=== PATIENT | female | born 1950 | race Caucasian/White ===

== ENCOUNTER 2020-09-29 17:26 | Inpatient (IN) | payer MEDICARE, MEDICAID ==
[~2020-09-29] VITALS: Ht 162.6 cm; Wt 64.9 kg
[2020-09-29] MEDS ORDERED: VANCOMYCIN 1 G PREMIX 200 ML IV ONE (18:30)
[2020-09-29] MEDS ORDERED: PIPERACILLIN/TAZ 3.375G PREMIX 50 ML IV ONE (18:30)
[2020-09-29 18:48] LABS: CHLORIDE 105 mEq/L (98-107)
[2020-09-29 18:52] LABS: ETHANOL BLOOD < 10 mg/dL
[2020-09-29 19:09] LABS: CLARITY URINE TURBID (CLEAR); COLOR URINE DARK YELLOW (YELLOW); KETONES URINE TRACE (NEGATIVE); LEUKOCYTE ESTERASE URINE 2+ (NEGATIVE); NITRITE URINE NEGATIVE (NEGATIVE); OCCULT BLOOD URINE 2+ (NEGATIVE); PROTEIN URINE 3+ (NEGATIVE); SPECIFIC GRAVITY URINE 1.031 (1.005-1.030)
[2020-09-29 19:17] LABS: BASOPHILS % 0.2 % (0.0-2.0); EOSINOPHILS % 1.3 % (0.0-5.0); HEMATOCRIT. 31.5 % (36.0-48.0); HEMOGLOBIN. 10.1 g/dL (12.0-16.0); LYMPHOCYTES % 8.1 % (20.0-50.0); MEAN CORPUSCULAR HEMOGLOBIN 25.6 pg (28.0-32.0); MEAN CORPUSCULAR VOLUME 79.6 fL (81.0-99.0); NEUTROPHILS % 86.4 % (40.0-76.0); PLATELET 380 x1000/uL (130-400); RED BLOOD CELL COUNT 3.95 mill/uL (4.2-5.4); RED CELL DISTRIBUTION WIDTH 17.5 % (11.6-14.6)
[2020-09-29 19:18] LABS: *AMPHETAMINES SCREEN URINE NEGATIVE (NEGATIVE); *BARBITURATES SCREEN URINE NEGATIVE (NEGATIVE); *COCAINE SCREEN URINE NEGATIVE (NEGATIVE)
[2020-09-29 19:19] LABS: *BENZODIAZEPINES SCREEN URINE NEGATIVE (NEGATIVE); CANNABINOID URINE SCREEN NEGATIVE (NEGATIVE); METHADONE URINE SCREEN NEGATIVE (NEGATIVE); OPIATES URINE SCREEN PRESUMTIVE POSITIVE (NEGATIVE); PHENCYCLIDINE URINE SCREEN NEGATIVE (NEGATIVE)
[2020-09-29] MEDS ORDERED: CLONIDINE 0.1MG TABLET PO PRN (19:45)
[2020-09-29] MEDS ORDERED: IPRATROPIUM/ALBUTEROL 0.5-3(2.5)MG/3ML NEB HHN PRN (19:45)
[2020-09-29] MEDS ORDERED: DIPHENHYDRAMINE 50MG/ML VIAL IV PRN (19:45)
[2020-09-29] MEDS: SODIUM CHLORIDE 0.9% 1,000 ML IV SCH (20:47)
[2020-09-30] MEDS ORDERED: IOHEXOL-300 100 ML BOTTLE ONE (01:20)
[2020-09-30] MEDS ORDERED: VANCOMYCIN 750 MG PREMIX 150 ML IV SCH (05:00)
[2020-09-30] MEDS: PIPERACILLIN/TAZOBACTAM 3.375 G in DEXTROSE 5% WATER 50 ML IV SCH ×3 (05:32→23:18)
[2020-09-30 10:41] LABS: BASOPHILS % 0.5 % (0.0-2.0); EOSINOPHILS % 2.3 % (0.0-5.0); HEMATOCRIT. 29.5 % (36.0-48.0); HEMOGLOBIN. 9.6 g/dL (12.0-16.0); LYMPHOCYTES % 17.7 % (20.0-50.0); MEAN CORPUSCULAR HEMOGLOBIN 26.1 pg (28.0-32.0); MEAN CORPUSCULAR VOLUME 79.9 fL (81.0-99.0); MEAN PLATELET VOLUME 7.7 fl (7.4-10.4); MONOCYTES % 6.3 % (2.0-8.0); NEUTROPHILS % 73.2 % (40.0-76.0); PLATELET 331 x1000/uL (130-400); RED BLOOD CELL COUNT 3.69 mill/uL (4.2-5.4); RED CELL DISTRIBUTION WIDTH 17.7 % (11.6-14.6)
[2020-09-30 10:44] LABS: CHLORIDE 106 mEq/L (98-107)
[2020-09-30 10:51] LABS: LDL CHOLESTEROL 87 mg/dL (5-100)
[2020-09-30 10:52] LABS: HDL CHOLESTEROL 36 mg/dL (40-59)
[2020-09-30] MEDS ORDERED: ASPI-1497 PO (17:22)
[2020-09-30] MEDS ORDERED: FERR325T6 PO (17:22)
[2020-09-30] MEDS ORDERED: LOSA50TA41 PO (17:22)
[2020-09-30] MEDS ORDERED: VALP250S5 PO (17:22)
[2020-09-30] MEDS ORDERED: ASCO100T12 PO (17:22)
[2020-09-30] MEDS ORDERED: CALC-586 PO (17:22)
[2020-09-30] MEDS: SODIUM CHLORIDE 0.9% 1,000 ML IV SCH (17:46)
[2020-09-30] MEDS: INSULIN LISPRO 100 UNITS/ML SUBCUT SCH ×2 (18:10→21:00)
[2020-09-30] MEDS: BLOOD SUGAR DIAGNOSTIC STRIP TEST SCH ×2 (18:12→21:00)
[2020-09-30] MEDS ORDERED: DEXTROSE 50% WATER 50ML SYRINGE IV PRN (18:15)
[2020-09-30 19:21] LABS: TOTAL IRON BINDING CAPACITY 271 ug/dL (250-450)
[2020-09-30 20:00] VITALS: BP 113/68
[2020-09-30] MEDS ORDERED: VANCOMYCIN 1 G PREMIX 200 ML IV SCH (21:00)
[2020-10-01] VITALS: BP 117/86
[2020-10-01] MEDS ORDERED: DEXT 5% IV SCH ×2 (03:00→15:00)
[2020-10-01] MEDS ORDERED: WATER IV SCH ×2 (03:00→15:00)
[2020-10-01] MEDS ORDERED: POLYMYXIN B SULFATE IV SCH ×2 (03:00→15:00)
[2020-10-01] MEDS: ACETAMINOPHEN 325MG TABLET PO PRN ×2 (03:41→09:10)
[2020-10-01 04:00] VITALS: BP 136/76
[2020-10-01] MEDS: PIPERACILLIN/TAZOBACTAM 3.375 G in DEXTROSE 5% WATER 50 ML IV SCH ×2 (05:50→13:26)
[2020-10-01] MEDS: INSULIN LISPRO 100 UNITS/ML SUBCUT SCH ×4 (07:50→21:00)
[2020-10-01] MEDS: BLOOD SUGAR DIAGNOSTIC STRIP TEST SCH ×4 (07:59→21:42)
[2020-10-01 08:13] VITALS: BP 113/49
[2020-10-01 10:14] LABS: CHLORIDE 108 mEq/L (98-107)
[2020-10-01] MEDS: SODIUM CHLORIDE 0.9% 1,000 ML IV SCH (11:47)
[2020-10-01 12:00] VITALS: BP 109/53
[2020-10-01 16:40] VITALS: BP 137/65
[2020-10-01] MEDS: MEROPENEM 1,000 MG in SODIUM CHLORIDE 0.9% 100 ML IV SCH (17:26)
[2020-10-01 20:00] VITALS: BP 120/42
[2020-10-02] VITALS: BP 137/40
[2020-10-02] MEDS: ACETAMINOPHEN 325MG TABLET PO PRN ×2 (00:50→16:41)
[2020-10-02] MEDS: MEROPENEM 1,000 MG in SODIUM CHLORIDE 0.9% 100 ML IV SCH ×3 (00:50→17:32)
[2020-10-02] MEDS: POLYMYXIN B SULFATE IV SCH ×2 (03:56→15:54)
[2020-10-02] MEDS: WATER IV SCH ×2 (03:56→15:54)
[2020-10-02] MEDS: DEXT 5% IV SCH ×2 (03:56→15:54)
[2020-10-02 04:00] VITALS: BP 94/56
[2020-10-02] MEDS: BLOOD SUGAR DIAGNOSTIC STRIP TEST SCH ×4 (06:44→21:09)
[2020-10-02 07:59] LABS: BASOPHILS % 0.3 % (0.0-2.0); EOSINOPHILS % 10.2 % (0.0-5.0); HEMATOCRIT. 28.7 % (36.0-48.0); HEMOGLOBIN. 9.3 g/dL (12.0-16.0); LYMPHOCYTES % 25.1 % (20.0-50.0); MEAN CORPUSCULAR HEMOGLOBIN 26.4 pg (28.0-32.0); MEAN CORPUSCULAR VOLUME 81.2 fL (81.0-99.0); MEAN PLATELET VOLUME 8.1 fl (7.4-10.4); MONOCYTES % 6.5 % (2.0-8.0); NEUTROPHILS % 57.9 % (40.0-76.0); PLATELET 250 x1000/uL (130-400); RED BLOOD CELL COUNT 3.53 mill/uL (4.2-5.4); RED CELL DISTRIBUTION WIDTH 17.2 % (11.6-14.6)
[2020-10-02 08:07] LABS: CHLORIDE 106 mEq/L (98-107)
[2020-10-02 08:11] VITALS: BP 126/48
[2020-10-02] MEDS: IPRATROPIUM/ALBUTEROL 0.5-3(2.5)MG/3ML NEB HHN SCH ×3 (09:24→21:12)
[2020-10-02] MEDS: INSULIN LISPRO 100 UNITS/ML SUBCUT SCH ×4 (09:54→21:00)
[2020-10-02] MEDS: SODIUM CHLORIDE 0.9% 1,000 ML IV SCH (09:56)
[2020-10-02 12:00] VITALS: BP 125/51
[2020-10-02 16:00] VITALS: BP 122/40
[2020-10-02 20:00] VITALS: BP 119/40
[2020-10-02] MEDS: HYDROCODONE/ACETAMINOPHEN 5/325MG TABLET PO PRN (21:10)
[2020-10-03] VITALS: BP 106/52
[2020-10-03] MEDS: MEROPENEM 1,000 MG in SODIUM CHLORIDE 0.9% 100 ML IV SCH ×3 (01:26→17:52)
[2020-10-03] MEDS: IPRATROPIUM/ALBUTEROL 0.5-3(2.5)MG/3ML NEB HHN SCH ×4 (01:58→21:34)
[2020-10-03 04:00] VITALS: BP 110/50
[2020-10-03] MEDS: WATER IV SCH ×2 (04:06→14:23)
[2020-10-03] MEDS: DEXT 5% IV SCH ×2 (04:06→14:23)
[2020-10-03] MEDS: POLYMYXIN B SULFATE IV SCH ×2 (04:06→14:23)
[2020-10-03] MEDS: SODIUM CHLORIDE 0.9% 1,000 ML IV SCH (04:07)
[2020-10-03] MEDS: BLOOD SUGAR DIAGNOSTIC STRIP TEST SCH ×4 (06:22→21:10)
[2020-10-03] MEDS: INSULIN LISPRO 100 UNITS/ML SUBCUT SCH ×4 (07:20→21:00)
[2020-10-03 08:00] VITALS: BP 153/48
[2020-10-03] MEDS: HYDROCODONE/ACETAMINOPHEN 5/325MG TABLET PO PRN ×2 (10:17→21:10)
[2020-10-03] MEDS ORDERED: SODIUM CHLORIDE 0.9% 500 ML IV SCH (11:00)
[2020-10-03 12:00] VITALS: BP 110/40
[2020-10-03 12:28] LABS: BASOPHILS % 0.4 % (0.0-2.0); EOSINOPHILS % 6.6 % (0.0-5.0); HEMATOCRIT. 27.7 % (36.0-48.0); HEMOGLOBIN. 9.3 g/dL (12.0-16.0); LYMPHOCYTES % 17.4 % (20.0-50.0); MEAN CORPUSCULAR HEMOGLOBIN 26.9 pg (28.0-32.0); MEAN CORPUSCULAR VOLUME 80.3 fL (81.0-99.0); MEAN PLATELET VOLUME 8.2 fl (7.4-10.4); MONOCYTES % 6.1 % (2.0-8.0); NEUTROPHILS % 69.5 % (40.0-76.0); PLATELET 258 x1000/uL (130-400); RED BLOOD CELL COUNT 3.45 mill/uL (4.2-5.4)
[2020-10-03 12:35] LABS: CHLORIDE 105 mEq/L (98-107)
[2020-10-03] MEDS ORDERED: IOHEXOL-350 100 ML BOTTLE ONE (14:34)
[2020-10-03 16:00] VITALS: BP 120/57
[2020-10-03] MEDS: ONDANSETRON HCL 4MG/2ML INJ IV PRN (21:10)
[2020-10-04] MEDS: MEROPENEM 1,000 MG in SODIUM CHLORIDE 0.9% 100 ML IV SCH ×3 (00:48→16:38)
[2020-10-04] MEDS: SODIUM CHLORIDE 0.9% 1,000 ML IV SCH ×2 (00:48→22:09)
[2020-10-04] MEDS: IPRATROPIUM/ALBUTEROL 0.5-3(2.5)MG/3ML NEB HHN SCH ×3 (00:59→20:54)
[2020-10-04 04:00] VITALS: BP 132/50
[2020-10-04] MEDS: POLYMYXIN B SULFATE IV SCH ×2 (05:39→16:38)
[2020-10-04] MEDS: WATER IV SCH ×2 (05:39→16:38)
[2020-10-04] MEDS: DEXT 5% IV SCH ×2 (05:39→16:38)
[2020-10-04] MEDS: BLOOD SUGAR DIAGNOSTIC STRIP TEST SCH ×4 (06:38→21:00)
[2020-10-04 07:31] LABS: BASOPHILS % 0.7 % (0.0-2.0); EOSINOPHILS % 9.9 % (0.0-5.0); HEMATOCRIT. 30.1 % (36.0-48.0); HEMOGLOBIN. 10.3 g/dL (12.0-16.0); LYMPHOCYTES % 25.7 % (20.0-50.0); MEAN CORPUSCULAR HEMOGLOBIN 27.2 pg (28.0-32.0); MEAN CORPUSCULAR VOLUME 79.4 fL (81.0-99.0); MEAN PLATELET VOLUME 8.1 fl (7.4-10.4); MONOCYTES % 6.5 % (2.0-8.0); NEUTROPHILS % 57.2 % (40.0-76.0); PLATELET 266 x1000/uL (130-400); RED BLOOD CELL COUNT 3.79 mill/uL (4.2-5.4); RED CELL DISTRIBUTION WIDTH 17.1 % (11.6-14.6)
[2020-10-04 07:45] LABS: CHLORIDE 104 mEq/L (98-107)
[2020-10-04] MEDS: INSULIN LISPRO 100 UNITS/ML SUBCUT SCH ×4 (07:50→21:00)
[2020-10-04 08:00] VITALS: BP 142/47
[2020-10-04] MEDS ORDERED: SODIUM CHLORIDE 0.9% 500 ML IV SCH (11:00)
[2020-10-04 12:00] VITALS: BP 114/48
[2020-10-04 16:00] VITALS: BP 97/44
[2020-10-04] MEDS: HYDROCODONE/ACETAMINOPHEN 5/325MG TABLET PO PRN (16:36)
[2020-10-04 20:00] VITALS: BP 167/63
[2020-10-05] VITALS: BP 158/67
[2020-10-05] MEDS: MEROPENEM 1,000 MG in SODIUM CHLORIDE 0.9% 100 ML IV SCH ×3 (00:35→17:40)
[2020-10-05] MEDS: IPRATROPIUM/ALBUTEROL 0.5-3(2.5)MG/3ML NEB HHN SCH ×4 (01:09→21:07)
[2020-10-05 04:00] VITALS: BP 129/52
[2020-10-05] MEDS: DEXT 5% IV SCH ×2 (04:37→15:49)
[2020-10-05] MEDS: WATER IV SCH ×2 (04:37→15:49)
[2020-10-05] MEDS: POLYMYXIN B SULFATE IV SCH ×2 (04:37→15:49)
[2020-10-05] MEDS: BLOOD SUGAR DIAGNOSTIC STRIP TEST SCH ×4 (06:06→21:05)
[2020-10-05] MEDS: INSULIN LISPRO 100 UNITS/ML SUBCUT SCH ×4 (06:06→21:00)
[2020-10-05 07:13] LABS: CHLORIDE 102 mEq/L (98-107)
[2020-10-05 07:33] LABS: BASOPHILS % 0.7 % (0.0-2.0); EOSINOPHILS % 9.3 % (0.0-5.0); HEMATOCRIT. 28.9 % (36.0-48.0); HEMOGLOBIN. 9.9 g/dL (12.0-16.0); MEAN CORPUSCULAR HEMOGLOBIN 27.1 pg (28.0-32.0); MEAN CORPUSCULAR VOLUME 79.6 fL (81.0-99.0); MONOCYTES % 8.2 % (2.0-8.0); NEUTROPHILS % 54.8 % (40.0-76.0); PLATELET 264 x1000/uL (130-400); RED BLOOD CELL COUNT 3.64 mill/uL (4.2-5.4); RED CELL DISTRIBUTION WIDTH 17.3 % (11.6-14.6)
[2020-10-05 08:13] VITALS: BP 116/52
[2020-10-05 12:05] VITALS: BP 126/49
[2020-10-05 15:46] VITALS: BP 108/55
[2020-10-05] MEDS: SODIUM CHLORIDE 0.9% 1,000 ML IV SCH (15:49)
[2020-10-05] MEDS: HYDROCODONE/ACETAMINOPHEN 5/325MG TABLET PO PRN (16:00)
[2020-10-05 20:00] VITALS: BP 112/73
[2020-10-06] VITALS: BP 120/61
[2020-10-06] MEDS: MEROPENEM 1,000 MG in SODIUM CHLORIDE 0.9% 100 ML IV SCH ×3 (00:19→17:43)
[2020-10-06] MEDS: SODIUM CHLORIDE 0.9% 1,000 ML IV SCH (00:22)
[2020-10-06] MEDS: IPRATROPIUM/ALBUTEROL 0.5-3(2.5)MG/3ML NEB HHN SCH ×4 (02:21→21:36)
[2020-10-06] MEDS: DEXT 5% IV SCH ×2 (02:50→14:25)
[2020-10-06] MEDS: WATER IV SCH ×2 (02:50→14:25)
[2020-10-06] MEDS: POLYMYXIN B SULFATE IV SCH ×2 (02:50→14:25)
[2020-10-06] MEDS: MORPHINE SULFATE 2 MG/ML CPJ (NOT FOR IM USE) IV PRN ×2 (03:08→17:44)
[2020-10-06 05:56] VITALS: BP 122/64
[2020-10-06 06:46] LABS: BASOPHILS % 0.3 % (0.0-2.0); EOSINOPHILS % 6.3 % (0.0-5.0); HEMATOCRIT. 28.7 % (36.0-48.0); HEMOGLOBIN. 9.7 g/dL (12.0-16.0); LYMPHOCYTES % 24.1 % (20.0-50.0); MEAN CORPUSCULAR HEMOGLOBIN 26.9 pg (28.0-32.0); MEAN CORPUSCULAR VOLUME 79.6 fL (81.0-99.0); MEAN PLATELET VOLUME 8.2 fl (7.4-10.4); MONOCYTES % 7.3 % (2.0-8.0); PLATELET 258 x1000/uL (130-400); RED CELL DISTRIBUTION WIDTH 17.5 % (11.6-14.6)
[2020-10-06 06:54] LABS: CHLORIDE 101 mEq/L (98-107)
[2020-10-06] MEDS: BLOOD SUGAR DIAGNOSTIC STRIP TEST SCH ×4 (07:40→20:31)
[2020-10-06] MEDS: INSULIN LISPRO 100 UNITS/ML SUBCUT SCH ×4 (07:41→20:41)
[2020-10-06 09:15] VITALS: BP 116/53
[2020-10-06 12:12] VITALS: BP 97/78
[2020-10-06 13:26] LABS: BG BASE EXCESS 8.3 mmol/L (-2.0-2.0); BG CARBOXYHEMOGLOBIN 0.3 % (0.5-1.5); BG DEOXYHEMOGLOBIN 7.3 % (0.0-5.0); BG FRACTION INSPIRED OXYGEN 21; BG HCO3 ACT 33.3 mmol/L (22.0-26.0); BG METHEMOGLOBIN 0.3 % (0.0-1.5); BG OXYGEN SATURATION 92.7 % (92.0-98.5); BG OXYHEMOGLOBIN 92.1 % (94.0-97.0); BG PCO2 48.7 mmHg (35.0-45.0); BG PH 7.453 (7.350-7.450); BG PO2 68.7 mmHg (75.0-100.0); BG SAMPLE SITE LEFT RADIAL; BG TOTAL HEMOGLOBIN 10.6 g/dL (12.0-18.0); BG VENT MODE ROOM AIR
[2020-10-06 15:41] VITALS: BP 87/63
[2020-10-06] MEDS: LINEZOLID 600 MG PREMIX 300 ML IV SCH (20:31)
[2020-10-06 20:38] VITALS: BP 103/54
[2020-10-07 00:24] VITALS: BP 109/46
[2020-10-07] MEDS: MORPHINE SULFATE 2 MG/ML CPJ (NOT FOR IM USE) IV PRN (01:11)
[2020-10-07] MEDS: IPRATROPIUM/ALBUTEROL 0.5-3(2.5)MG/3ML NEB HHN SCH ×4 (01:54→22:02)
[2020-10-07] MEDS: MEROPENEM 1,000 MG in SODIUM CHLORIDE 0.9% 100 ML IV SCH ×3 (03:47→17:43)
[2020-10-07 04:00] VITALS: BP 128/58
[2020-10-07] MEDS: POLYMYXIN B SULFATE IV SCH ×2 (04:51→14:25)
[2020-10-07] MEDS: WATER IV SCH ×2 (04:51→14:25)
[2020-10-07] MEDS: DEXT 5% IV SCH ×2 (04:51→14:25)
[2020-10-07 06:12] LABS: BASOPHILS % 0.4 % (0.0-2.0); LYMPHOCYTES % 19.8 % (20.0-50.0); MEAN CORPUSCULAR HEMOGLOBIN 26.4 pg (28.0-32.0); MEAN CORPUSCULAR VOLUME 79.4 fL (81.0-99.0); MEAN PLATELET VOLUME 8.3 fl (7.4-10.4); MONOCYTES % 6.2 % (2.0-8.0); NEUTROPHILS % 66.6 % (40.0-76.0); PLATELET 217 x1000/uL (130-400); RED CELL DISTRIBUTION WIDTH 17.5 % (11.6-14.6)
[2020-10-07 06:21] LABS: CHLORIDE 104 mEq/L (98-107)
[2020-10-07] MEDS: BLOOD SUGAR DIAGNOSTIC STRIP TEST SCH ×4 (06:36→21:00)
[2020-10-07 08:00] VITALS: BP 116/52
[2020-10-07] MEDS: SODIUM CHLORIDE 0.9% 1,000 ML IV SCH (08:00)
[2020-10-07] MEDS: INSULIN LISPRO 100 UNITS/ML SUBCUT SCH ×4 (08:09→21:00)
[2020-10-07] MEDS: LINEZOLID 600 MG PREMIX 300 ML IV SCH ×2 (08:09→19:53)
[2020-10-07 12:00] VITALS: BP 107/58
[2020-10-07 16:00] VITALS: BP 114/56
[2020-10-07 20:32] VITALS: BP 108/40
[2020-10-08] MEDS: MEROPENEM 1,000 MG in SODIUM CHLORIDE 0.9% 100 ML IV SCH ×3 (00:12→17:24)
[2020-10-08] MEDS: SODIUM CHLORIDE 0.9% 1,000 ML IV SCH (00:12)
[2020-10-08 00:24] VITALS: BP 108/43
[2020-10-08] MEDS: IPRATROPIUM/ALBUTEROL 0.5-3(2.5)MG/3ML NEB HHN SCH ×4 (03:06→20:55)
[2020-10-08] MEDS ORDERED: MORPHINE SULFATE 2 MG/ML CPJ (NOT FOR IM USE) IV PRN (03:30)
[2020-10-08] MEDS: POLYMYXIN B SULFATE IV SCH ×2 (03:33→16:12)
[2020-10-08] MEDS: DEXT 5% IV SCH ×2 (03:33→16:12)
[2020-10-08] MEDS: WATER IV SCH ×2 (03:33→16:12)
[2020-10-08 04:00] VITALS: BP 105/72
[2020-10-08] MEDS: BLOOD SUGAR DIAGNOSTIC STRIP TEST SCH ×4 (06:56→21:00)
[2020-10-08 07:10] LABS: BASOPHILS % 0.3 % (0.0-2.0); EOSINOPHILS % 7.9 % (0.0-5.0); HEMOGLOBIN. 10.1 g/dL (12.0-16.0); LYMPHOCYTES % 18.9 % (20.0-50.0); MEAN CORPUSCULAR HEMOGLOBIN 25.9 pg (28.0-32.0); MEAN CORPUSCULAR VOLUME 79.5 fL (81.0-99.0); MEAN PLATELET VOLUME 7.9 fl (7.4-10.4); MONOCYTES % 5.9 % (2.0-8.0); PLATELET 265 x1000/uL (130-400); RED CELL DISTRIBUTION WIDTH 17.4 % (11.6-14.6)
[2020-10-08 07:39] LABS: CHLORIDE 102 mEq/L (98-107)
[2020-10-08] MEDS: INSULIN LISPRO 100 UNITS/ML SUBCUT SCH ×4 (07:50→21:00)
[2020-10-08 08:00] VITALS: BP 103/37
[2020-10-08] MEDS: LINEZOLID 600 MG PREMIX 300 ML IV SCH ×2 (08:34→20:00)
[2020-10-08] MEDS: SODIUM HYPOCHLORITE 0.125% 473ML SOLUTION TOP SCH (09:00)
[2020-10-08 12:00] VITALS: BP 119/54
[2020-10-08 16:00] VITALS: BP 108/56
[2020-10-08 20:00] VITALS: BP 138/41
[2020-10-09] VITALS (11 sets, daily range): BP systolic 107–149; BP diastolic 49–78
[2020-10-09] MEDS: IPRATROPIUM/ALBUTEROL 0.5-3(2.5)MG/3ML NEB HHN SCH ×3 (01:35→20:30)
[2020-10-09] MEDS: WATER IV SCH ×2 (03:44→15:52)
[2020-10-09] MEDS: POLYMYXIN B SULFATE IV SCH ×2 (03:44→15:52)
[2020-10-09] MEDS: MEROPENEM 1,000 MG in SODIUM CHLORIDE 0.9% 100 ML IV SCH ×3 (03:44→17:55)
[2020-10-09] MEDS: DEXT 5% IV SCH ×2 (03:44→15:52)
[2020-10-09] MEDS: SODIUM CHLORIDE 0.9% 1,000 ML IV SCH ×2 (03:48→19:43)
[2020-10-09] MEDS: BLOOD SUGAR DIAGNOSTIC STRIP TEST SCH ×4 (06:38→20:11)
[2020-10-09 07:14] LABS: CHLORIDE 102 mEq/L (98-107)
[2020-10-09 07:23] LABS: BASOPHILS % 0.2 % (0.0-2.0); EOSINOPHILS % 1.8 % (0.0-5.0); HEMATOCRIT. 30.3 % (36.0-48.0); HEMOGLOBIN. 10.1 g/dL (12.0-16.0); LYMPHOCYTES % 10.2 % (20.0-50.0); MEAN CORPUSCULAR HEMOGLOBIN 26.4 pg (28.0-32.0); MEAN CORPUSCULAR VOLUME 79.3 fL (81.0-99.0); MEAN PLATELET VOLUME 8.4 fl (7.4-10.4); MONOCYTES % 4.7 % (2.0-8.0); NEUTROPHILS % 83.1 % (40.0-76.0); PLATELET 266 x1000/uL (130-400); RED BLOOD CELL COUNT 3.82 mill/uL (4.2-5.4); RED CELL DISTRIBUTION WIDTH 17.8 % (11.6-14.6)
[2020-10-09] MEDS: INSULIN LISPRO 100 UNITS/ML SUBCUT SCH ×4 (08:34→20:12)
[2020-10-09] MEDS: LINEZOLID 600 MG PREMIX 300 ML IV SCH ×2 (08:37→19:45)
[2020-10-09] MEDS: SODIUM HYPOCHLORITE 0.125% 473ML SOLUTION TOP SCH (08:37)
[2020-10-10] VITALS (14 sets, daily range): BP systolic 84–159; BP diastolic 38–99
[2020-10-10] MEDS: IPRATROPIUM/ALBUTEROL 0.5-3(2.5)MG/3ML NEB HHN SCH ×4 (01:23→21:14)
[2020-10-10] MEDS: MEROPENEM 1,000 MG in SODIUM CHLORIDE 0.9% 100 ML IV SCH ×3 (01:47→16:41)
[2020-10-10] MEDS: DEXT 5% IV SCH ×2 (03:57→15:21)
[2020-10-10] MEDS: WATER IV SCH ×2 (03:57→15:21)
[2020-10-10] MEDS: POLYMYXIN B SULFATE IV SCH ×2 (03:57→15:21)
[2020-10-10] MEDS: BLOOD SUGAR DIAGNOSTIC STRIP TEST SCH ×4 (07:30→21:01)
[2020-10-10] MEDS: INSULIN LISPRO 100 UNITS/ML SUBCUT SCH ×4 (08:00→21:00)
[2020-10-10] MEDS: MORPHINE SULFATE 2 MG/ML CPJ (NOT FOR IM USE) IV PRN (09:16)
[2020-10-10] MEDS: LINEZOLID 600 MG PREMIX 300 ML IV SCH ×2 (09:19→21:01)
[2020-10-10] MEDS: SODIUM HYPOCHLORITE 0.125% 473ML SOLUTION TOP SCH (09:19)
[2020-10-10 16:00] LABS: BASOPHILS % 0.4 % (0.0-2.0); EOSINOPHILS % 4.4 % (0.0-5.0); HEMATOCRIT. 28.9 % (36.0-48.0); HEMOGLOBIN. 9.9 g/dL (12.0-16.0); LYMPHOCYTES % 19.7 % (20.0-50.0); MEAN CORPUSCULAR HEMOGLOBIN 26.9 pg (28.0-32.0); MEAN CORPUSCULAR VOLUME 78.2 fL (81.0-99.0); MEAN PLATELET VOLUME 8.1 fl (7.4-10.4); MONOCYTES % 7.7 % (2.0-8.0); NEUTROPHILS % 67.8 % (40.0-76.0); PLATELET 280 x1000/uL (130-400); RED BLOOD CELL COUNT 3.69 mill/uL (4.2-5.4); RED CELL DISTRIBUTION WIDTH 17.6 % (11.6-14.6)
[2020-10-10] MEDS: SODIUM CHLORIDE 0.9% 1,000 ML IV SCH (16:42)
[2020-10-10] MEDS: ONDANSETRON HCL 4MG/2ML INJ IV PRN (16:51)
[2020-10-11] VITALS (10 sets, daily range): BP systolic 102–144; BP diastolic 46–76
[2020-10-11] MEDS: IPRATROPIUM/ALBUTEROL 0.5-3(2.5)MG/3ML NEB HHN SCH ×4 (04:14→20:33)
[2020-10-11] MEDS: BLOOD SUGAR DIAGNOSTIC STRIP TEST SCH ×3 (07:30→17:30)
[2020-10-11] MEDS: INSULIN LISPRO 100 UNITS/ML SUBCUT SCH ×3 (08:00→18:00)
[2020-10-11] MEDS: LINEZOLID 600 MG PREMIX 300 ML IV SCH ×2 (09:03→16:11)
[2020-10-11] MEDS: SODIUM HYPOCHLORITE 0.125% 473ML SOLUTION TOP SCH (09:08)
[2020-10-11] MEDS: MORPHINE SULFATE 2 MG/ML CPJ (NOT FOR IM USE) IV PRN (09:43)
[2020-10-11] MEDS ORDERED: NALOXONE HCL 0.4 MG/ML 1ML VIAL IV PRN (11:45)
[2020-10-11] MEDS ORDERED: HYDROCODONE/ACETAMINOPHEN 10/325MG TABLET PO PRN (11:45)
[2020-10-11] MEDS: SODIUM CHLORIDE 0.9% 1,000 ML IV SCH (12:00)
== END 2020-10-11 21:07 | DRG 871 ==
LOC: ER 17:26 → ENRESERV 09-30 14:58 → 7WST 09-30 16:31 → 6WST 10-01 01:35 → 5EST 10-09 10:29
PROVIDERS: ADMIT Internal Medicine; ATTEND Internal Medicine
DX: A41.50 Gram-negative sepsis, unspecified (principal); J96.01 Acute respiratory failure with hypoxia; N39.0 Urinary tract infection, site not specified; J98.11 Atelectasis; G82.20 Paraplegia, unspecified; L97.419 Non-pressure chronic ulcer of right heel and midfoot with unspecified severity; L97.429 Non-pressure chronic ulcer of left heel and midfoot with unspecified severity; J44.1 Chronic obstructive pulmonary disease with (acute) exacerbation; D64.9 Anemia, unspecified; I25.10 Atherosclerotic heart disease of native coronary artery without angina pectoris; K80.20 Calculus of gallbladder without cholecystitis without obstruction; G20 Parkinson's disease; R65.20 Severe sepsis without septic shock; R74.01 Elevation of levels of liver transaminase levels; Z20.822 Contact with and (suspected) exposure to COVID-19; E11.51 Type 2 diabetes mellitus with diabetic peripheral angiopathy without gangrene; G89.0 Central pain syndrome; J98.01 Acute bronchospasm; Z86.73 Personal history of transient ischemic attack (TIA), and cerebral infarction without residual deficits; Z90.710 Acquired absence of both cervix and uterus; M62.462 Contracture of muscle, left lower leg; M62.461 Contracture of muscle, right lower leg; I10 Essential (primary) hypertension
CPT/HCPCS: 36415; 36600; 71045; 73630; 74018; 74177; 76881; 80048; 80053; 80061; 80202; 80305; 80320; 81003; 82040; 82375; 82728; 82805; 82962; 83036; 83540; 83550; 83605; 83615; 83880; 84134; 84443; 84484; 85025; 85651; 86140; 87070; 87075; 87077; 87186; 93005; 93923; 94640; 99285; A6261; J1815; J2020; J2185; J2270; J2405; J2543; J3370; J3490; J7040; J7050; J7060; Q9967; U0003; U0005; A4315; G0480